=== PATIENT | male | born 1955 | race Caucasian/White ===

== ENCOUNTER 2016-08-13 16:33 | Emergency (ER) | payer SELFPAY ==
[2016-08-13] MEDS ORDERED: ASPIRIN 81 MG TABLET, CHEWABLE PO ONE (16:54)
--- NOTE | 2016-08-13 17:07 | ER Document Report ---
ED Medical Screen (RME) - General Mode of Arrival: Ambulatory Information source: Patient <ARAM LUIS - Last Filed: 08/13/16 18:45> <JAQUELINHERIBERTOBRIANNA - Last Filed: 08/13/16 21:30> - General Chief Complaint: Chest Pain Stated Complaint: CHEST PAIN Time Seen by Provider: 08/13/16 16:59 Notes: 51-year-old male with history of a deteriorating cervical disc and family history of heart disease presents to the ED complaining of bilateral arm and neck pain that started "a couple months ago" and chest pain that started 2 days ago. Patient reports that 2 nights ago he was lying in bed was woken up with tight chest pain that 'scared' him. Patient reports pain relief with exertion. Patient was discussing his symptoms with his brother who recently had a heart catheterization performed and he advised patient to get checked out. Patient is also complaining of vomiting, diarrhea, and intermittent left lower quadrant abdominal pain for the past 2 days to the point that he was unable to get out of bed yesterday. Patient reports that he feels much better today. (ARAM LUIS ) - Related Data Allergies/Adverse Reactions: No Known Drug Allergies Allergy (Verified 08/13/16 16:51) Past Medical History - General Information source: Patient - Social History Cigarette use (# per day): Yes Chew tobacco use (# tins/day): No Frequency of alcohol use: None Drug Abuse: None Family history: Reviewed & Not Pertinent - Past Medical History Cardiac Medical History: Denies: Hx Heart Attack, Hx Hypercholesterolemia, Hx Hypertension Endocrine Medical History: Denies: Hx Diabetes Mellitus Type 2 Renal/ Medical History: Denies: Hx Peritoneal Dialysis - Immunizations Hx Diphtheria, Pertussis, Tetanus Vaccination: No <ARAM LUIS - Last Filed: 08/13/16 18:45> Review of Systems - Review of Systems Constitutional: No symptoms reported EENT: No symptoms reported Cardiovascular: See HPI, Chest pain Respiratory: No symptoms reported Gastrointestinal: See HPI, Abdominal pain - LLQ, Diarrhea, Vomiting Genitourinary: No symptoms reported Male Genitourinary: No symptoms reported Musculoskeletal: See HPI, Neck pain, Other - bilateral arm pain Skin: No symptoms reported Hematologic/Lymphatic: No symptoms reported Neurological/Psychological: No symptoms reported -: Yes All other systems reviewed and negative <ARAM LUIS - Last Filed: 08/13/16 18:45> Physical Exam - General General appearance: Alert In distress: None - Respiratory Respiratory status: No respiratory distress Breath sounds: Normal - Cardiovascular Rhythm: Regular Heart sounds: Normal auscultation Murmur: No Friction rub: No Gallop: None auscultated - Abdominal Inspection: Normal Distension: No distension Tenderness: Nontender <ARAM LUIS - Last Filed: 08/13/16 18:45> Course - Laboratory Result Diagrams: 08/13/16 17:16 08/13/16 17:16 <LUISARAM - Last Filed: 08/13/16 18:45> - Laboratory Result Diagrams: 08/13/16 17:16 08/13/16 17:16 <BRIANNA ANGELA - Last Filed: 08/13/16 21:30> - Vital Signs Vital signs: Temp Pulse Resp BP Pulse Ox 98 F 64 13 133/77 H 96 08/13/16 20:39 08/13/16 20:39 08/13/16 20:39 08/13/16 20:39 08/13/16 20:39 - Laboratory Laboratory results interpreted by me: 08/13/16 17:16 MCV 102 H MCH 33.6 H Doctor's Discharge <PALLAVI LUISUR - Last Filed: 08/13/16 18:45> <BRIANNA ANGELA - Last Filed: 08/13/16 21:30> - Discharge Clinical Impression: Chest pain Condition: Good Disposition: HOME, SELF-CARE Additional Instructions: You were seen today for chest pain. The exact cause of your pain is unclear. However, based on your cardiac enzyme testing, chest x-ray, and EKG it does not appear that it is from an immediately life-threatening cause at this time. Although your testing here is normal is critical that you follow-up with your primary care physician for continued evaluation of this chest pain and possible stress testing. I recommended you see your physician within the next 24-48 hours to be evaluated for consideration of a stress test. Please return to emergency department immediately if you have worsening of your chest pain, shortness of breath, vomiting, become unable to exert yourself due to pain or difficulty breathing, you pass out, or have any pain that radiates into your arms, jaw, or back. Please also return if you have any additional symptoms that are concerning to you. Scribe Documentation - Scribe Written by Liza:: Liza Moreno, 08/13/2016 1859 acting as scribe for :: Fran <ARAM LUIS - Last Filed: 08/13/16 18:45>
[2016-08-13 17:33] LABS: ABSOLUTE BASOPHILS # (AUTO) 0.1 10^3/uL (0.0-0.2); ABSOLUTE EOSINOPHILS # (AUTO) 0.1 10^3/uL (0.0-0.6); ABSOLUTE LYMPHOCYTES (AUTO) 1.8 10^3/uL (0.5-4.7); ABSOLUTE MONOCYTES (AUTO) 0.8 10^3/uL (0.1-1.4); ABSOLUTE NEUT (AUTO) 4.7 10^3/uL (1.7-8.2); BASOPHILS % (AUTO) 0.9 % (0-2); EOSINOPHILS % (AUTO) 1.9 % (0-6); HEMATOCRIT 44.9 % (37.9-51.0); HEMOGLOBIN 14.8 g/dL (13.5-17.0); HGB HCT DIFFERENCE -0.5; LYMPHOCYTES % (AUTO) 23.6 % (13-45); MEAN CORPUSCULAR HEMOGLOBIN 33.6 pg (27.0-33.4); MEAN CORPUSCULAR HGB CONC 32.9 g/dL (32.0-36.0); MEAN CORPUSCULAR VOLUME 102 fl (80-97); MONOCYTES % (AUTO) 10.8 % (3-13); RED BLOOD COUNT 4.39 10^6/uL (4.35-5.55); RED CELL DISTRIBUTION WIDTH 13.2 % (11.5-14.0); SEGMENTED NEUTROPHILS % (AUTO) 62.8 % (42-78); WHITE BLOOD COUNT 7.5 10^3/uL (4.0-10.5)
--- NOTE | 2016-08-13 17:41 | RADIOLOGY REPORT (SQ) ---
EXAM DESCRIPTION: CHEST SINGLE VIEW COMPLETED DATE/TIME: 08/13/2016 5:26 pm REASON FOR STUDY: fatigue, cp COMPARISON: None. EXAM PARAMETERS: NUMBER OF VIEWS: One view. TECHNIQUE: Single frontal radiographic view of the chest acquired. RADIATION DOSE: NA LIMITATIONS: None. FINDINGS: LUNGS AND PLEURA: No opacities, masses or pneumothorax. No pleural effusion. MEDIASTINUM AND HILAR STRUCTURES: No masses. Contour normal. HEART AND VASCULAR STRUCTURES: Heart normal in size. Normal vasculature. BONES: No acute findings. HARDWARE: None in the chest. OTHER: No other significant finding. IMPRESSION: NO ACUTE RADIOGRAPHIC FINDING IN THE CHEST. TECHNICAL DOCUMENTATION: JOB ID: [id number]
[2016-08-13 17:57] LABS: ALANINE AMINOTRANSFERASE 27 U/L (21-72); ALBUMIN 3.8 g/dL (3.5-5.0); ALKALINE PHOSPHATASE 82 U/L (38-126); ANION GAP 10 (5-19); ASPARTATE AMINO TRANSFERASE 24 U/L (17-59); BILIRUBIN,DIRECT 0.3 mg/dL (0.0-0.4); BILIRUBIN,TOTAL 0.4 mg/dL (0.2-1.3); BLOOD UREA NITROGEN 12 mg/dL (7-20); CALCIUM 8.8 mg/dL (8.4-10.2); CARBON DIOXIDE 24 mmol/L (22-30); CHLORIDE 105 mmol/L (98-107); CREATINE KINASE 70 U/L (55-170); CREATININE RESULT 1.11 mg/dL (0.52-1.25); GLUCOSE 96 mg/dL (75-110); POTASSIUM 3.8 mmol/L (3.6-5.0); SODIUM 138.8 mmol/L (137-145); TOTAL PROTEIN 6.8 g/dL (6.3-8.2)
[2016-08-13 18:09] LABS: CREATINE KINASE MB 0.56 ng/mL (<4.55); TROPONIN I < 0.012 ng/mL
--- NOTE | 2016-08-13 20:28 | ER Document Report ---
ED General - General Chief Complaint: Chest Pain Stated Complaint: CHEST PAIN Time Seen by Provider: 08/13/16 16:59 Mode of Arrival: Ambulatory Notes: Patient is a 61-year-old male current tobacco user, no other major medical history, no cardiac history who presents with an episode of chest pain approximately 24 hours ago. Describes it as a brief period of a stabbing, throbbing pain to his central chest. Nothing improves or worsen the pain and it did spontaneously resolved. States he was concerned as for the past 1 month he has had intermittent pain to his bilateral upper extremities that has been attributed to a cervical canal stenosis. He denies any associated nausea, vomiting or diaphoresis. No shortness of breath. He has not had any recurrence of this pain since the initial episode approximately 24 hours ago. - Related Data Allergies/Adverse Reactions: No Known Drug Allergies Allergy (Verified 08/13/16 16:51) Past Medical History - General Information source: Patient - Social History Smoking Status: Current Every Day Smoker Cigarette use (# per day): Yes Chew tobacco use (# tins/day): No Frequency of alcohol use: None Drug Abuse: None Lives with: Spouse/Significant other Family History: Reviewed & Not Pertinent Patient has suicidal ideation: No Patient has homicidal ideation: No - Past Medical History Cardiac Medical History: Denies: Hx Heart Attack, Hx Hypercholesterolemia, Hx Hypertension Pulmonary Medical History: Reports: Hx Asthma, Hx Bronchitis, Hx Pneumonia Endocrine Medical History: Denies: Hx Diabetes Mellitus Type 2 Renal/ Medical History: Reports: Hx Kidney Stones. Denies: Hx Peritoneal Dialysis Past Surgical History: Reports: Hx Orthopedic Surgery - carpal tunnel - Immunizations Hx Diphtheria, Pertussis, Tetanus Vaccination: No Review of Systems - Review of Systems Notes: Constitutional: Negative for fever. HENT: Negative for sore throat. Eyes: Negative for visual changes. Cardiovascular: Positive for chest pain. Respiratory: Negative for shortness of breath. Gastrointestinal: Negative for abdominal pain, vomiting or diarrhea. Genitourinary: Negative for dysuria. Musculoskeletal: Negative for back pain. Skin: Negative for rash. Neurological: Negative for headaches, weakness or numbness. 10 point ROS negative except as marked above and in HPI. Physical Exam - Vital signs Vitals: Resp Pulse Ox 13 97 08/13/16 19:24 08/13/16 19:24 Interpretation: Normal Notes: PHYSICAL EXAMINATION: GENERAL: Well-appearing, well-nourished and in no acute distress. HEAD: Atraumatic, normocephalic. EYES: Pupils equal round and reactive to light, extraocular movements intact, sclera anicteric, conjunctiva are normal. ENT: nares patent, oropharynx clear without exudates. Moist mucous membranes. NECK: Normal range of motion, supple without lymphadenopathy LUNGS: Breath sounds clear to auscultation bilaterally and equal. No wheezes rales or rhonchi. HEART: Regular rate and rhythm without murmurs ABDOMEN: Soft, nontender, normoactive bowel sounds. No guarding, no rebound. No masses appreciated. EXTREMITIES: Normal range of motion, no pitting or edema. No cyanosis. NEUROLOGICAL: No focal neurological deficits. Moves all extremities spontaneously and on command. PSYCH: Normal mood, normal affect. SKIN: Warm, Dry, normal turgor, no rashes or lesions noted. Course - Re-evaluation Re-evalutation: 08/13/16 20:25 Presentation of chest pain in an otherwise well appearing patient. Low clinical suspicion for ACS given clinical history, exam, EKG without ST elevations or depressions, and negative initial troponin. HEART score less than or equal to 3. PE also seems unlikely given clinical history, absence of tachycardia or dyspnea. Patient is PERC criteria negative. CXR without evidence of pneumothorax or pneumonia. No widened mediastinum. Aortic dissection also seems unlikely given history, symmetric pulses, CXR, and vitals. Patient has not had chest pain over 24 hours and his episode of chest pain was last night after several episodes of persistent vomiting. I do not suspect this is cardiac in origin and do not believe serial troponin assays are indicated if he has not had pain in greater than 12 hours and is here almost 24 hours after onset of pain. If his chest pain had been a result of an infarction, and initial troponin would be positive. HEART Score: History:0 EC Age:1 Risk Factors:1 Troponin:0 Total: 2 Overall assessment: Chest pain in a patient without evidence of cardiac or other serious etiology on workup today. I discussed with patient that, based on their age, risk factors and emergency department testing today, the likelihood that their symptoms are related to a heart attack is very low (estimated risk of heart attack or over the next 30 days of less than 1%). The patient demonstrates decision making capacity and has verbalized an understanding of these risks to me. Based on this, the patient has chosen to follow-up as an outpatient. Usual chest pain return precautions reviewed. The patient states understanding and agreement with this plan. - Vital Signs Vital signs: Temp Pulse Resp BP Pulse Ox 98 F 64 13 133/77 H 96 08/13/16 20:39 08/13/16 20:39 08/13/16 20:39 08/13/16 20:39 08/13/16 20:39 - Laboratory Result Diagrams: 08/13/16 17:16 08/13/16 17:16 Laboratory results interpreted by me: 08/13/16 17:16 MCV 102 H MCH 33.6 H - Diagnostic Test Radiology reviewed: Image reviewed, Reports reviewed Radiology results interpreted by me: 08/13/16 20:27 Chest x-ray: No acute infiltrate - EKG Interpretation by Me Additional EKG results interpreted by me: 08/13/16 20:27 Normal sinus rhythm. Rate 81. No ST elevations or depressions. QTC is 418. Discharge - Discharge Clinical Impression: Chest pain Qualifiers: Chest pain type: unspecified Qualified Code(s): R07.9 - Chest pain, unspecified Condition: Good Disposition: HOME, SELF-CARE Additional Instructions: You were seen today for chest pain. The exact cause of your pain is unclear. However, based on your cardiac enzyme testing, chest x-ray, and EKG it does not appear that it is from an immediately life-threatening cause at this time. Although your testing here is normal is critical that you follow-up with your primary care physician for continued evaluation of this chest pain and possible stress testing. I recommended you see your physician within the next 24-48 hours to be evaluated for consideration of a stress test. Please return to emergency department immediately if you have worsening of your chest pain, shortness of breath, vomiting, become unable to exert yourself due to pain or difficulty breathing, you pass out, or have any pain that radiates into your arms, jaw, or back. Please also return if you have any additional symptoms that are concerning to you.
[2016-08-13 20:39] VITALS: BP 133/77
--- NOTE | 2016-08-14 08:30 | EKG REPORT ---
SEVERITY:- NORMAL ECG - SINUS RHYTHM : Confirmed by: Bryan Lozano 14-Aug-2016 08:30:03
== END 2016-08-13 20:39 | disposition home or self-care (01) ==
LOC: ER 16:33
DX: R07.9 Chest pain, unspecified (principal); F17.210 Nicotine dependence, cigarettes, uncomplicated
CPT/HCPCS: 36415; 71010; 80053; 82550; 82553; 84484; 85025; 93005; 93010; 99285